=== PATIENT | male | born 1955 | race Caucasian/White ===

== ENCOUNTER → 2023-08-27 09:38 | Outpatient (REF) | payer MEDICARE, SELFPAY | LOC: HWCARD 09:38 | PROVIDERS: ATTENDING PHYSICIAN Registered Nurse; FAMILY PHYSICIAN Internal Medicine | DX: R94.31 Abnormal electrocardiogram [ECG] [EKG] (principal); Z79.899 Other long term (current) drug therapy | CPT/HCPCS: 93005 ==

== ENCOUNTER → 2025-01-31 09:44 | Outpatient (REF) | payer MEDICARE, SELFPAY | LOC: HWCARD 09:44 | PROVIDERS: ATTENDING PHYSICIAN Surgery; FAMILY PHYSICIAN Internal Medicine | DX: Z01.818 Encounter for other preprocedural examination (principal) | CPT/HCPCS: 93005 ==